=== PATIENT | male | born 1980 | race Caucasian/White ===

== ENCOUNTER 2021-01-16 18:12 | Emergency (ER) | payer OTHER, SELFPAY ==
[2021-01-16 19:18] VITALS: BP 166/93; PULSE 100; RESP 20; TEMP 36.8; O2SAT 100
[2021-01-16 22:16] VITALS: BP 160/87; PULSE 87; RESP 18; O2SAT 100
[2021-01-16] MEDS: ENOXAPARIN 100 MG/ML SYRINGE 140 MG SUB-Q (22:59)
[2021-01-16 23:02] VITALS: BP 155/85; PULSE 74; RESP 16; O2SAT 100
--- NOTE | 2021-01-16 23:17 | ED.LOWEXIN ---
HPI - Extremity Injury (Lower) General Chief Complaint: Extremity Injury, Lower Stated Complaint: L LEG PAIN Time Seen by Provider: 01/16/21 22:04 History of Present Illness HPI Narrative: Patient is a 40-year-old male who presents ER with left calf pain. Worsening over the last day. Had recent ankle fracture the last week and is in a boot. Reports has been very active over the weekend which may have exacerbated his pain. After talking to a family member who is a nurse he came in to be evaluated for the calf pain and some mild swelling he is having. No new injury or numbness or tingling. No chest pain or shortness of breath. No history of blood clots. Related Data Allergies Allergy/AdvReac Type Severity Reaction Status Date / Time No Known Allergies Allergy Verified 01/16/21 22:59 Review of Systems Review of Systems: All systems reviewed & are unremarkable except as noted in HPI and below Constitutional: Constitutional: Denies chills, Denies fever(s) and Denies weakness Cardiovascular: Cardiovascular: Denies chest pain, Denies rapid heart rate and Denies radiating jaw, neck or arm pain Respiratory: Respiratory: Denies cough and Denies dyspnea Musculoskeletal: Musculoskeletal: Denies arthralgias, Denies joint swelling and Reports muscle cramps PMFSH Past Medical History Medical History (Updated 01/16/21 @ 23:26 by Smith Vela MD) Healthy adult male Surgical History Surgical History (Updated 01/16/21 @ 23:26 by Smith Vela MD) No history of previous surgery Exam Narrative: Exam Narrative: GENERAL: Well-appearing, well-nourished, and in no acute distress. HEAD: Normocephalic, atraumatic. CHEST: Clear to auscultation. No respiratory distress. HEART: Regular rate and rhythm. No murmur heard. Normal peripheral pulses. EXTREMITIES: Normal range of motion. Mild swelling of the left ankle with bruising due to previous fracture. Mild calf tenderness on the left. SKIN: Warm, dry, no rash. NEURO: Alert and oriented x3. PSYCH: Normal mood and affect. Course Course Emergency Course: Patient received Lovenox 1 mg/kg for DVT treatment. He has been arranged for ultrasound tomorrow morning and results to be sent to his PCPs office. Vital Signs Vital signs: Vital Signs Temperature 98.2 F 01/16/21 19:18 Pulse Rate 100 01/16/21 19:18 Respiratory Rate 20 01/16/21 19:18 Blood Pressure 166/93 H 01/16/21 19:18 Pulse Oximetry 100 01/16/21 19:18 Temperature 98.2 F 01/16/21 19:18 Pulse Rate 74 01/16/21 23:02 Respiratory Rate 16 01/16/21 23:02 Blood Pressure 155/85 H 01/16/21 23:02 Pulse Oximetry 100 01/16/21 23:02 Discharge Plan Discharge Clinical Impression: Calf pain Patient Disposition: Home, Self-Care Condition: Stable Instructions: Deep Vein Thrombosis (ED) Additional Instructions: You have an ultrasound scheduled for 7 AM in the morning. Arrive 15 minutes early. Return the ER immediately if you have chest pain with shortness of breath, you cannot keep down food or water, you lose consciousness. You received a blood thinning medication to treat a possible blood clot. If you do not hear about your results from your primary care physician by noon tomorrow you should contact the office to obtain the results. Other Ambulatory Orders: US venous doppler LE LT (Routine) Timeframe: 20210117 Facility: [facility] - Location: [facility] Imaging Ordered By: Smith Vela Follow-up/Referrals: UNKNOWN,DOCTOR [Primary Care Provider] - 1 Day
[2021-01-16 23:55] VITALS: BP 141/78; PULSE 79; RESP 16; O2SAT 100
== END 2021-01-16 23:57 | disposition home or self-care (01) ==
PROVIDERS: Emergency Provider Emergency Medicine
DX: M79.662 Pain in left lower leg (principal); S82.892D Other fracture of left lower leg, subsequent encounter for closed fracture with routine healing; X58.XXXD Exposure to other specified factors, subsequent encounter
CPT/HCPCS: 96372; 99283; J1650

== ENCOUNTER 2021-01-17 07:55 | Outpatient (CLI) | payer OTHER, SELFPAY ==
--- NOTE | ~2021-01-17 | US_ITS ---
EXAMINATION:US venous doppler LE LT INDICATION:Left lower extremity pain TECHNIQUE: Multiple grayscale, color flow and Doppler images of the left lower extremity deep venous systems were obtained and reviewed. COMPARISON:No prior studies for comparison. FINDINGS: The common femoral, superficial femoral and popliteal veins demonstrate normal respiratory variation, augmentation and compressibility. Color flow is also seen within the posterior tibial, pe roneal, greater saphenous and profunda veins. IMPRESSION: 1: No lower extremity deep venous thrombosis. Reviewed, dictated and finalized at location A.
== END 2021-01-17 07:56 | disposition home or self-care (01) ==
LOC: ANHIMG 08:00
PROVIDERS: Visit Provider Emergency Medicine
DX: M79.662 Pain in left lower leg (principal)
CPT/HCPCS: 93971